=== PATIENT | female | born 1960 | race Caucasian/White ===

== ENCOUNTER 2022-02-03 10:09 | Inpatient (IN) ==
[2022-02-03] MEDS ORDERED: 0.9 % Sodium Chloride 1,000 ML ONE ×3 (11:19→16:26)
[2022-02-03] MEDS ORDERED: *HR* Heparin 10,000 UNIT/10 ML VIAL ONE (11:45)
[2022-02-03] MEDS ORDERED: Iopamidol - 370 200 ML INFUS..BTL ONE (11:45)
[2022-02-03] MEDS ORDERED: Nitroglycerin 1,000 MCG/5 ML VIAL IV ONE (11:45)
[2022-02-03] MEDS ORDERED: Heparin 1,000 UNITS/500 mL 500 ML ONE ×2 (11:45→15:37)
[2022-02-03] MEDS ORDERED: Tirofiban 12.5 MG/250ML 12.5 MG/250 ML BAG ONE (14:07)
[2022-02-03] MEDS ORDERED: *HR* FentaNYL (PF) 100 MCG/2 ML VIAL ONE (14:32)
[2022-02-03] MEDS ORDERED: *HR* Midazolam HCl 2 MG/2 ML VIAL ONE (14:32)
[2022-02-03] MEDS ORDERED: Tirofiban 12.5 MG/250ML 12.5 MG/250 ML BAG IVC SCH (17:15)
[2022-02-03] MEDS: Sucralfate 1 GM TABLET PO SCH (18:02)
[2022-02-03] MEDS: Budesonide/Formoterol 160/4.5 1 PUFF INH IH SCH (21:40)
[2022-02-03] MEDS: cilostazoL 100 MG TABLET PO SCH (22:24)
[2022-02-03] MEDS: Ranolazine 500 MG TAB.ER.12H PO SCH (22:24)
[2022-02-03] MEDS: Gabapentin 100 MG CAPSULE PO SCH (22:24)
[2022-02-04 03:28] LABS: Hematocrit 31.6 % (35.3-44.9)
[2022-02-04 03:34] LABS: Hemoglobin 10.5 g/dL (11.5-15.4)
[2022-02-04 03:48] LABS: BUN/Creatinine Ratio 27 (6-26); Blood Urea Nitrogen 16 mg/dL (8-23); eGFR For African Americans > 60 (> 60); eGFR For Non-African Americans > 60 (> 60)
[2022-02-04] MEDS ORDERED: Tiotropium 10 INH DOSE IH ONE (08:05)
[2022-02-04] MEDS: Tiotropium 10 INH DOSE IH SCH (08:07)
[2022-02-04] MEDS: Budesonide/Formoterol 160/4.5 1 PUFF INH IH SCH ×2 (08:08→21:49)
[2022-02-04] MEDS: Ranolazine 500 MG TAB.ER.12H PO SCH ×2 (08:35→20:44)
[2022-02-04] MEDS: ARIPiprazole 5 MG TABLET PO SCH (08:35)
[2022-02-04] MEDS: Sucralfate 1 GM TABLET PO SCH ×3 (08:35→17:35)
[2022-02-04] MEDS: Loratadine 10 MG TABLET PO SCH (08:36)
[2022-02-04] MEDS: PARoxetine 20 MG TABLET PO SCH (08:36)
[2022-02-04] MEDS: Aspirin Enteric Coated 81 MG Tablet PO SCH (08:36)
[2022-02-04] MEDS: cilostazoL 100 MG TABLET PO SCH ×2 (08:36→20:44)
[2022-02-04] MEDS: predniSONE 20 MG TABLET PO SCH (08:37)
[2022-02-04] MEDS: Gabapentin 100 MG CAPSULE PO SCH ×3 (08:37→20:44)
[2022-02-04] MEDS: Fluticasone Propionate Nasal 50 MCG/SPRAY BOTTLE NS SCH (08:37)
[2022-02-04] MEDS: Furosemide 40 MG TABLET PO SCH (08:37)
[2022-02-04] MEDS ORDERED: Metoprolol XL (24 HR) Succ 25 MG TAB.ER.24H PO SCH ×2 (09:00→12:02)
[2022-02-05 03:18] LABS: Hematocrit 27.5 % (35.3-44.9); Hemoglobin 9.2 g/dL (11.5-15.4); Mean Corpuscular HGB Conc 33.5 g/dL (31.6-35.5); Mean Corpuscular Hemoglobin 30.3 pg (28.0-33.3); Mean Corpuscular Volume 90.5 fL (83.0-100.0); Mean Platelet Volume 9.5 fL (9.4-12.4); Platelet Count 215 K/mcL (140-400); Red Blood Count 3.04 M/mcL (3.82-4.97); Red Cell Distribution Width 11.9 % (11.5-14.5)
[2022-02-05 03:35] LABS: BUN/Creatinine Ratio 38 (6-26); Blood Urea Nitrogen 26 mg/dL (8-23); Calcium 8.7 mg/dL (8.6-10.3); Carbon Dioxide 26 mEq/L (23-29); Chloride 107 mEq/L (98-107); Glucose 101 mg/dL (70-105); Osmolality,Calculated 291 (280-300); Sodium 138 mEq/L (136-145); eGFR For African Americans > 60 (> 60); eGFR For Non-African Americans > 60 (> 60)
[2022-02-05 08:03] VITALS: BP 140/69; PULSE 101; TEMP 97.7; O2SAT 95
[2022-02-05] MEDS: Tiotropium 10 INH DOSE IH SCH (08:23)
[2022-02-05] MEDS: Budesonide/Formoterol 160/4.5 1 PUFF INH IH SCH (08:23)
[2022-02-05] MEDS: Ranolazine 500 MG TAB.ER.12H PO SCH (08:45)
[2022-02-05] MEDS: predniSONE 20 MG TABLET PO SCH (08:45)
[2022-02-05] MEDS: PARoxetine 20 MG TABLET PO SCH (08:46)
[2022-02-05] MEDS: Gabapentin 100 MG CAPSULE PO SCH (08:46)
[2022-02-05] MEDS: Aspirin Enteric Coated 81 MG Tablet PO SCH (08:46)
[2022-02-05] MEDS: Furosemide 40 MG TABLET PO SCH (08:46)
[2022-02-05] MEDS: Sucralfate 1 GM TABLET PO SCH (08:47)
[2022-02-05] MEDS: Loratadine 10 MG TABLET PO SCH (08:47)
[2022-02-05] MEDS: cilostazoL 100 MG TABLET PO SCH (08:47)
[2022-02-05] MEDS: Fluticasone Propionate Nasal 50 MCG/SPRAY BOTTLE NS SCH (08:48)
[2022-02-05] MEDS: ARIPiprazole 5 MG TABLET PO SCH (08:48)
== END 2022-02-05 12:03 | disposition home or self-care (01) | DRG 247 ==
LOC: INVDIALAB 10:09 → 3BNU 17:18
PROVIDERS: ADMIT Internal Medicine Cardiovascular Disease; ATTEND Internal Medicine Cardiovascular Disease